=== PATIENT | female | born 1980 | race Caucasian/White ===

== ENCOUNTER → 2016-12-11 | Outpatient (CLI) | payer OTHER ==
[~2016-12-11] VITALS: Ht 154.9 cm; Wt 146.1 kg
[~2016-12-11] MED LIST: COZAAR100 MG PO; CYMBALTA60 MG PO; FARXIGA5 MG PO; GLUCOPHAGE1000 MG PO; KLOR-CON M2020 MEQ PO; LASIX 40 MG TAB40 M2 PO; LEVEMIR SUBQ; METHADONE HCL5 MG PO; NEURONTIN 300300 M1 PO; OXYCONTIN20 M1 PO; PROTONIX40 M1 PO; TIAZAC PO; TRILEPTAL150 MG PO; VENTOLIN HFA 1818 GM INH; WELLBUTRIN SR100 MG PO
--- NOTE | ~2016-12-11 | HPC ---
[facility] [address] [place] [address] PAIN MANAGEMENT CONSULTATION Name: ROSARIOJACKIETIESHA HOLLIDAY Room #: REG KAYKAY Dempsey#: [id number] Admission: 12/11/16 Attend Phys: Varun Walsh DO Discharge: Date of : 76 Report #: [id number] THIS REPORT FOR: //name// CC: JOYCE Walsh DATE OF SERVICE: 12/11/2016 The patient is a 36-year-old female seen in consultation at the request of Dr. Dias for assistance with management of chronic pain concerns. The patient has significant diabetic peripheral neuropathy. She has been managed with opiate analgesics and calcium channel membrane stabilizing agent (gabapentin) for some time. Actually, she has been managed with opiate analgesics since 2010. Initially, a fentanyl patch though she only used this for a couple of cycles, had nausea with this, rotated to hydrocodone up to about a year and a half ago, rotated to oxycodone, was taking Percocet 10/325 one tablet at bedtime for about a year and a half in July, was rotated to OxyContin 20 mg at bedtime. Unfortunately, with this, she had moderate relief, but also had significant cost concerns. She was started on gabapentin 300 mg 3 a day for quite some time, titrated up to 4 a day; about 3 months ago, she claims no efficacy with this. She does use Cymbalta 60 mg daily, both for diabetic pain and for some chronic anxiety. Despite these medications, she still rates pain is a "10" on a 0-10 visual analog scale. She describes continuous, steady, constant, burning, shooting, aching, throbbing, pounding, sharp, stabbing, tender pain in her lower legs, ankles, feet and beginning to have some symptoms in her hands, mostly numbness and decreased sensation. She states heat and water make the pain worse, is somewhat relieved with ice packs. REVIEW OF SYSTEMS: Complete review of systems attached to chart, was gone over with the patient. She is single. She has a chronic smoking history greater than 10 years, currently smoking a half pack a day, does not drink alcohol to excess. Poorly controlled diabetes, uses metformin, Farxiga and insulin. Tells me that her hemoglobin A1c has been up to 14, though it has gradually coming down, last one she believes was around 10. Uses Proventil and DuoNeb along with Ventolin for some reactive airway disease. Diltiazem, Lasix, potassium and losartan for hypertension. Pantoprazole for gastroesophageal reflux. The aforementioned Cymbalta 60 mg, gabapentin 300 mg 4 a day for significant diabetic neuropathic pain. States she has not been on any opiate analgesics for last 2-3 months and has significant exacerbation of pain with this. She is morbidly obese, but to her credit, she claims she has lost 45 pounds in the past year. She has been disabled for the past 2-1/2 [place] [address] PAIN MANAGEMENT CONSULTATION Name: JACKIE PONCE Room #: REG KAYKAY Dempsey#: [id number] Admission: 12/11/16 Attend Phys: Varun Walsh DO Discharge: Date of : 76 Report #: [id number] significant diabetic peripheral neuropathy. 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 SURGICAL HISTORY: Includes tonsillectomy as a child and a polypectomy from a vocal cord in 2010. Pain impact score is 57/70. PHYSICAL EXAMINATION: Reveals a morbidly obese, 5-foot 1-inch, 300-pound female, BMI is 60.9 kilograms per meter squared. Blood pressure is elevated today 158/118, repeated she was consistently high. Pulse is 119, respirations 26. It is of note that she was about 45 minutes late for the visit. She had driven in from [place], felt rushed and somewhat anxious getting into the exam room. We will continue to monitor her blood pressure. Pupils equal and reactive to light and accommodation. Extraocular muscles are intact. She does have lateral gaze nystagmus. Cranial nerves 2-12 are grossly intact. Thyroid is enlarged, no nodules are noted. Upper extremity strength is generally symmetric. She does have some subjective decreased 2-point discrimination from about her forearms down. Hand grasp is objectively symmetric. Deep tendon reflexes are preserved to 1/4 for the biceps, triceps, brachioradialis. Tinel's is negative. Heart is regular and rhythmical without murmur. Lungs show rhonchi with distant breath sounds bilaterally. Markedly endomorphic build. She has florid venous stasis with purple legs from about the lower third of her lower leg down to the feet. She has some desquamation about her lower legs and feet. She has significant decreased 2-point discrimination from about the third way down the lower leg down into the foot. Lower extremity strength is 3-4/5 to all muscle groups tested. She has +1 to 2 pretibial edema. Again, the feet do appear quite cyanotic. There are no open lesions at this time. Gait is moderately antalgic and somewhat ataxic due to lack of proprioception. There are no recent diagnostic studies available at this time. We did do a [facility] review on the patient and it appears that her last opiate prescription was OxyContin 20 mg 30 tablets dispensed on 08/15/2016. ASSESSMENT: Significant diabetic neuropathy, bilateral lower extremities with component of upper extremity neuropathy as well, poorly controlled insulin dependent diabetes, morbid obesity, nicotine habituation and concern for venous stasis with vascular insufficiency of lower extremities. RECOMMENDATIONS: 1. Long discussion with the patient today about therapeutic options. I have agreed to entering to an opiate consent to treat contract with the patient today. Mandate: [facility] [address] [place] [address] PAIN MANAGEMENT CONSULTATION Name: JACKIE PONCE Room #: REG KAYKAY Dempsey#: [id number] Admission: 12/11/16 Attend Phys: Varun Walsh DO Discharge: Date of : 76 Report #: [id number] i. Smoking cessation. ii. Weight loss and aggressive blood sugar control. 2. I will refer back to Dr. Dias for a referral for vascular studies of lower extremity. 3. Continue gabapentin, we will increase from 4 a day to 5 a day, 2 in the morning, 1 at noon and 2 at night. I have taken the liberty of writing for a new prescription for 150 gabapentin 300 mg tablets. 4. We will start the patient on Trileptal 150 mg at bedtime, titrating up to t.i.d. along with the gabapentin dose. Hopefully, this combination of a more therapeutic dose of calcium channel membrane stabilizing agent (gabapentin) in conjunction with a sodium channel membrane stabilizing agent (Trileptal) will help with neuropathic pain. 5. Lastly, we will start the patient on methadone 2.5 mg at bedtime for 4 nights and then b.i.d. 5 mg of methadone roughly equivalent to 20 mg of oxycodone. Hopefully, with the NMDA receptor activity of methadone, she will have a little bit of neuropathic pain control. We may need to titrate this dose a little. I will start her at this low dose to evaluate the patient's tolerability of this drug. 6. Follow up in 4 weeks to evaluate efficacy. Likely get a buccal swab at that time. She should be positive for methadone as the sole opiate and hopefully, she will quit smoking at that time. I told her we would give her 2 months to achieve nicotine free state. Thank you for allowing me to participate in the patient's care. I will keep you abreast of her progress. <ELECTRONICALLY SIGNED> By: Varun Walsh DO 12/12/16 [id number] Varun Walsh DO /nt
[2016-12-11 14:06] VITALS: BP 158/118
== END | disposition home or self-care (01) ==
LOC: PAIN 11-03 07:26
DX: E11.42 Type 2 diabetes mellitus with diabetic polyneuropathy (principal); Z79.4 Long term (current) use of insulin; I10 Essential (primary) hypertension; K21.9 Gastro-esophageal reflux disease without esophagitis; E66.01 Morbid (severe) obesity due to excess calories; F41.9 Anxiety disorder, unspecified; F17.210 Nicotine dependence, cigarettes, uncomplicated; J45.909 Unspecified asthma, uncomplicated; Z98.890 Other specified postprocedural states